=== PATIENT | female | born 1990 | race Caucasian/White ===

== ENCOUNTER 2017-11-01 21:50 | Emergency (ER) | payer BC ==
--- NOTE | 2017-11-01 23:12 | EDM.PDOC ---
ED HPI GENERAL MEDICAL PROBLEM - General Chief Complaint: Lower Extremity Injury/Pain Stated Complaint: SWOLLEN LEGS Time Seen by Provider: 11/01/17 23:02 Source of Information: Reports: Patient, Family (Mother) History Limitations: Reports: No Limitations - History of Present Illness INITIAL COMMENTS - FREE TEXT/NARRATIVE: The patient states that she has had bilateral lower extremity edema for the past 2 weeks. No recent chest pain, dyspnea, or palpitations. She was seen at [facility] today, where a d-dimer was found to be slightly elevated. She was sent here for further evaluation. On questioning, the patient admits that she is not careful about salt in her diet. She eats a large amount of processed foods. The patient does not have a PCP. - Related Data Allergies Allergy/AdvReac Type Severity Reaction Status Date / Time No Known Allergies Allergy Verified 11/01/17 21:54 Home Meds: Home Meds . 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 ED EXAM, GENERAL - Physical Exam Exam: See Below Exam Limited By: No Limitations General Appearance: Alert, WD/WN, No Apparent Distress Extremities: Other (Podgy bilateral lower extremities without significant edema. Neurovascular status of both lower extremities is intact.) Course - Vital Signs Last Recorded V/S: Last Vital Signs Temp 37.2 C 11/01/17 21:55 Pulse 95 11/01/17 21:55 Resp 16 11/01/17 21:55 BP 136/99 H 11/01/17 21:55 Pulse Ox 100 11/01/17 21:55 - Orders/Labs/Meds Orders: Active Orders 24 hr Category Date Time Status EKG Documentation Completion [RC] STAT Care 11/01/17 23:12 Active Venous Doppler Lwr Ext Bi [US] Stat Exams 11/01/17 22:08 Taken DRUG SCREEN, URINE [URCHEM] Stat Lab 11/01/17 22:15 Ordered HCG QUALITATIVE,URINE [URCHEM] Stat Lab 11/01/17 22:15 Ordered Labs: Laboratory Tests 11/01/17 11/01/17 11/01/17 Range/Units 22:15 22:15 23:15 WBC 11.91 H (3.98-10.04) K/mm3 RBC 4.41 (3.98-5.22) M/mm3 Hgb 13.6 (11.2-15.7) gm/L Hct 41.2 (34.1-44.9) % MCV 93.4 (79.4-94.8) fl MCH 30.8 (25.6-32.2) pg MCHC 33.0 (32.2-35.5) g/dl RDW Std Deviation 45.7 (36.4-46.3) fL Plt Count 216 (182-369) K/mm3 MPV 9.9 (9.4-12.3) fl Neutrophils % (Manual) 65 H (40-60) % Band Neutrophils % 0 (0-10) % Lymphocytes % (Manual) 23 (20-40) % Atypical Lymphs % 7 % Monocytes % (Manual) 2 (2-10) % Eosinophils % (Manual) 3 (0.7-5.8) % Basophils % (Manual) 0 L (0.1-1.2) Platelet Estimate Adequate Plt Morphology Comment Normal RBC Morph Comment A Sodium (136-145) mEq/L Potassium (3.5-5.1) mEq/L Chloride (98-107) mEq/L Carbon Dioxide (21-32) mEq/L Anion Gap (5-15) BUN (7-18) mg/dL Creatinine (0.55-1.02) mg/dL Est Cr Clr Drug Dosing mL/min Estimated GFR (MDRD) (>60) mL/min BUN/Creatinine Ratio (14-18) Glucose (74-106) mg/dL Calcium (8.5-10.1) mg/dL Total Bilirubin (0.2-1.0) mg/dL AST (15-37) U/L ALT (14-59) U/L Alkaline Phosphatase (46-116) U/L Total Protein (6.4-8.2) g/dl Albumin (3.4-5.0) g/dl Globulin gm/dL Albumin/Globulin Ratio (1-2) TSH 3rd Generation (0.358-3.74) uIU/mL Urine HCG, Qual Negative (NEGATIVE) Salicylates (2.8-20) mg/dL Urine Opiates Screen Negative (NEGATIVE) Ur Buprenorphine Scrn Negative (NEGATIVE) Ur Oxycodone Screen Negative (NEGATIVE) Urine Methadone Screen Negative (NEGATIVE) Ur Propoxyphene Screen Negative (NEGATIVE) Acetaminophen (10-30) ug/mL Ur Barbiturates Screen Negative (NEGATIVE) Ur Tricyclics Screen Negative (NEGATIVE) Ur Phencyclidine Scrn Negative (NEGATIVE) Ur Amphetamine Screen Negative (NEGATIVE) U Methamphetamines Scrn Negative (NEGATIVE) U Benzodiazepines Scrn Negative (NEGATIVE) U Cocaine Metab Screen Negative (NEGATIVE) U Marijuana (THC) Screen Negative (NEGATIVE) Ethyl Alcohol (0.00) gm% 11/01/17 11/01/17 Range/Units 23:15 23:15 WBC (3.98-10.04) K/mm3 RBC (3.98-5.22) M/mm3 Hgb (11.2-15.7) gm/L Hct (34.1-44.9) % MCV (79.4-94.8) fl MCH (25.6-32.2) pg MCHC (32.2-35.5) g/dl RDW Std Deviation (36.4-46.3) fL Plt Count (182-369) K/mm3 MPV (9.4-12.3) fl Neutrophils % (Manual) (40-60) % Band Neutrophils % (0-10) % Lymphocytes % (Manual) (20-40) % Atypical Lymphs % % Monocytes % (Manual) (2-10) % Eosinophils % (Manual) (0.7-5.8) % Basophils % (Manual) (0.1-1.2) Platelet Estimate Plt Morphology Comment RBC Morph Comment Sodium 140 (136-145) mEq/L Potassium 3.8 (3.5-5.1) mEq/L Chloride 106 (98-107) mEq/L Carbon Dioxide 28 (21-32) mEq/L Anion Gap 9.8 (5-15) BUN 13 (7-18) mg/dL Creatinine 1.0 (0.55-1.02) mg/dL Est Cr Clr Drug Dosing 86.00 mL/min Estimated GFR (MDRD) > 60 (>60) mL/min BUN/Creatinine Ratio 13.0 L (14-18) Glucose 83 (74-106) mg/dL Calcium 8.6 (8.5-10.1) mg/dL Total Bilirubin 0.3 (0.2-1.0) mg/dL AST 20 (15-37) U/L ALT 20 (14-59) U/L Alkaline Phosphatase 55 (46-116) U/L Total Protein 7.2 (6.4-8.2) g/dl Albumin 3.8 (3.4-5.0) g/dl Globulin 3.4 gm/dL Albumin/Globulin Ratio 1.1 (1-2) TSH 3rd Generation 2.802 (0.358-3.74) uIU/mL Urine HCG, Qual (NEGATIVE) Salicylates 3.4 (2.8-20) mg/dL Urine Opiates Screen (NEGATIVE) Ur Buprenorphine Scrn (NEGATIVE) Ur Oxycodone Screen (NEGATIVE) Urine Methadone Screen (NEGATIVE) Ur Propoxyphene Screen (NEGATIVE) Acetaminophen 0 L (10-30) ug/mL Ur Barbiturates Screen (NEGATIVE) Ur Tricyclics Screen (NEGATIVE) Ur Phencyclidine Scrn (NEGATIVE) Ur Amphetamine Screen (NEGATIVE) U Methamphetamines Scrn (NEGATIVE) U Benzodiazepines Scrn (NEGATIVE) U Cocaine Metab Screen (NEGATIVE) U Marijuana (THC) Screen (NEGATIVE) Ethyl Alcohol 0.00 (0.00) gm% - Re-Assessments/Exams Free Text/Narrative Re-Assessment/Exam: 11/01/17 23:11 The oxygen therapy technician states that she did not find any abnormalities on the Doppler. I will await the formal read from the Radiologist. Presuming it is negative, I will discharge the patient home with a recommendation that she cut back on ingested salt, including that found in processed foods. 11/02/17 00:13 Doppler ultrasound of the bilateral lower extremities is read by [facility] as "No deep venous thrombosis is seen. " Departure - Departure Time of Disposition: 00:13 Disposition: Home, Self-Care 01 Condition: Good Clinical Impression: Lower extremity edema - Discharge Information Instructions: Edema Referrals: PCP,None [Primary Care Provider] - Forms: ED Department Discharge Additional Instructions: You were seen in the emergency room for edema of both of your lower extremities , for the past 2 weeks. Workup in the ER included a Doppler ultrasound of both of her lower extremities , which returned as negative for a DVT (blood clot). The cause of your edema is not certain, but may be related to excess salt intake. Remember that salt is usually found in processed foods. Follow-up with the PCP of your choice, as needed. If any other problems, please do not hesitate to return to the ER. - My Orders Last 24 Hours: My Active Orders 11/01/17 22:08 Venous Doppler Lwr Ext Bi [US] Stat 11/01/17 22:15 DRUG SCREEN, URINE [URCHEM] Stat HCG QUALITATIVE,URINE [URCHEM] Stat 11/01/17 23:12 EKG Documentation Completion [RC] STAT - Assessment/Plan Last 24 Hours: My Active Orders 11/01/17 22:08 Venous Doppler Lwr Ext Bi [US] Stat 11/01/17 22:15 DRUG SCREEN, URINE [URCHEM] Stat HCG QUALITATIVE,URINE [URCHEM] Stat 11/01/17 23:12 EKG Documentation Completion [RC] STAT
[2017-11-02 00:27] LABS: ACETAMINOPHEN 0 ug/mL (10-30)
--- NOTE | 2017-11-03 08:40 | US ---
Bilateral lower extremity deep venous ultrasound: Duplex and color flow imaging was obtained of the right and left common femoral, proximal greater saphenous, superficial femoral, popliteal, posterior tibial and peroneal veins. Normal phasic flow, augmentation and compression are seen. Impression: 1. No evidence of deep venous thrombosis within the right or left lower extremities. Diagnostic code #1 I agree with preliminary report from [facility], finalized at 11/02/17, 1:05 AM Central Time
== END 2017-11-02 00:20 | disposition home or self-care (01) ==
LOC: JD.ED 21:50
DX: R60.0 Localized edema (principal)
CPT/HCPCS: 36415; 80053; 80306; 81025; 84443; 85007; 85027; 93005; 93970; 99284; G0480

== ENCOUNTER 2025-02-06 17:39 | Emergency (ER) | payer BC ==
[2025-02-06 18:37] LABS: BASOPHILS ABSOLUTE AUTO 0.0 K/mm3 (0.0-0.2); BASOPHILS PERCENT AUTO 0.3 % (0.0-1.0); EOSINOPHILS ABSOLUTE AUTO 0.2 K/mm3 (0.0-0.4); EOSINOPHILS PERCENT AUTO 1.4 % (0.0-6.0); IMMATURE GRAN ABSOLUTE AUTO 0.03 K/mm3 (0.00-0.05); IMMATURE GRAN PERCENT AUTO 0.3 % (0.0-0.4); LYMPHOCYTES ABSOLUTE AUTO 2.7 K/mm3 (1.0-4.8); LYMPHOCYTES PERCENT AUTO 22.5 % (24.0-44.0); MEAN PLATELET VOLUME 9.5 fl (9.4-12.3); MONOCYTES ABSOLUTE AUTO 0.6 K/mm3 (0.0-0.8); MONOCYTES PERCENT AUTO 5.3 % (0.0-8.0); NEUTROPHILS ABSOLUTE AUTO 8.4 K/mm3 (1.8-7.7); NEUTROPHILS PERCENT AUTO 70.2 % (41.0-71.0); NRBC ABSOLUTE 0.00 (0.00-0.02); NRBC PERCENT 0.0 % (0.0-0.2); PLATELET COUNT,PLT 212 K/mm3 (150-400); RED BLOOD CELL COUNT 4.31 M/mm3 (4.10-5.30); WHITE BLOOD CELL COUNT,WBC 11.94 K/mm3 (3.9-11.3)
[2025-02-06 19:02] LABS: A/G RATIO 1.0 (1-2); ALANINE AMINOTRANSFERASE,ALT 23.0 U/L (14-59); ASPARTATE AMNIOTRANSFERASE,AST 14.0 U/L (15-37); BILIRUBIN TOTAL 0.3 mg/dL (0.2-1.0); BLOOD UREA NITROGEN,BUN 12.0 mg/dL (7-18); CARBON DIOXIDE,CO2 25.0 mEq/L (21-32); CHLORIDE,CL 105.0 mEq/L (98-107); CREATININE 0.7 mg/dL (0.55-1.02); EST CRCL DRUG DOSING (CG) 118.35 mL/min; ESTIMATED GFR 116.0 mL/min (>60); GLUCOSE RANDOM 84.0 mg/dL (70-99); POTASSIUM,K 3.8 mEq/L (3.5-5.1); PROTEIN TOTAL,TP 7.3 g/dl (6.4-8.2); SODIUM,NA 139.0 mEq/L (136-145)
[2025-02-06 20:21] LABS: APPEARANCE,URINE SLT CLOUDY (Clear); GLUCOSE,URINE NEGATIVE (Negative); OCCULT BLOOD,URINE 3+ (Negative)
[2025-02-06 20:31] LABS: EPITHELIAL CELLS,URINE 0-5 /hpf (0-5)
== END 2025-02-06 21:25 | disposition home or self-care (01) ==
LOC: JD.ED 17:39
DX: O20.8 Other hemorrhage in early pregnancy (principal); O34.81 Maternal care for other abnormalities of pelvic organs, first trimester; N83.201 Unspecified ovarian cyst, right side; Z3A.01 Less than 8 weeks gestation of pregnancy
CPT/HCPCS: 36415; 76817; 76817-26; 80053; 81001; 84702; 85025; 87086; 99283; 99284